=== PATIENT | female | born 2000 | race Caucasian/White ===

== ENCOUNTER 2023-03-18 11:07 | Outpatient (CLI) | payer BC, OTHER | END 2023-03-18 11:08 | disposition home or self-care (01) | LOC: BICMRI 11:07 | PROVIDERS: ATTEND Orthopaedic Surgery | DX: M23.92 Unspecified internal derangement of left knee (principal); S83.512A Sprain of anterior cruciate ligament of left knee, initial encounter; S80.02XA Contusion of left knee, initial encounter ==

== ENCOUNTER 2023-08-31 06:03 | Observation (INO) | payer BC, OTHER ==
[2023-08-30 13:59] VITALS: BMI 23.0
[2023-08-31] MEDS ORDERED: PHENYLEPHRINE-NS 100 MCG/ML 10 ML SYRINGE ONE (06:25)
[2023-08-31] MEDS ORDERED: Metoclopramide HCl 10 MG/2 ML VIAL ONE ×2 (06:25→07:55)
[2023-08-31] MEDS ORDERED: Lidocaine 1% PF 5 ML VIAL ONE (06:25)
[2023-08-31] MEDS ORDERED: diphenhydrAMINE 50 MG/ML VIAL ONE ×2 (06:25→07:55)
[2023-08-31] MEDS ORDERED: Dexamethasone 20 MG/5 ML VIAL ONE (06:25)
[2023-08-31] MEDS ORDERED: PROPOFOL 200 MG/20 ML VIAL ONE (06:25)
[2023-08-31] MEDS ORDERED: Ondansetron PF 4 MG/2 ML Vial ONE ×2 (06:25→07:55)
[2023-08-31] MEDS ORDERED: fentaNYL PF 100 MCG/2 ML SYRINGE ONE ×2 (06:34→07:53)
[2023-08-31] MEDS ORDERED: Midazolam HCl 2 mg/2 ml Vial ONE ×2 (06:34→07:54)
[2023-08-31] MEDS ORDERED: PROPOFOL 20 ML ONE (06:34)
[2023-08-31] MEDS ORDERED: Sodium Chloride 0.9% 100 ML ONE (07:03)
[2023-08-31] MEDS ORDERED: CEFAZOLIN 2 GM VIAL ONE (07:03)
[2023-08-31] MEDS ORDERED: Bupivacaine HCl 0.5%/Epinephrine 1:200,000/PF 30 ml Vial ONE (07:20)
[2023-08-31] MEDS ORDERED: fentaNYL 50 mcg/mL 1 mL Vial SLOW IVP PRN (07:48)
[2023-08-31] MEDS ORDERED: Dexamethasone 4 mg/ml Vial ONE (07:55)
[2023-08-31] MEDS ORDERED: traMADol HCl 50 MG TAB PO PRN ×2 (08:00)
[2023-08-31] MEDS ORDERED: Ondansetron PF 4 MG/2 ML Vial IVP PRN (08:00)
[2023-08-31] MEDS ORDERED: Promethazine HCl 25 MG/ML VIAL IM PRN ×2 (08:00→10:30)
[2023-08-31] MEDS ORDERED: Ropivacaine 0.2% 550 ML 550 ML NERVE BLCK SCH (08:00)
[2023-08-31] MEDS ORDERED: HYDROcodone/Acetaminophen 5/325 mg Tablet PO PRN (08:00)
[2023-08-31] MEDS ORDERED: Zolpidem Tartrate 5 MG TAB PO PRN (08:00)
[2023-08-31] MEDS ORDERED: fentaNYL 50 mcg/mL 1 mL Vial ONE (08:19)
[2023-08-31] MEDS ORDERED: diphenhydrAMINE 50 MG CAP PO PRN (09:10)
[2023-08-31] MEDS ORDERED: Acetaminophen 500 MG TAB PO PRN (09:10)
[2023-08-31] MEDS ORDERED: Milk Of Magnesia 30 ML UDCUP PO PRN (09:10)
[2023-08-31] MEDS ORDERED: Methocarbamol 500 MG TAB PO PRN (09:10)
[2023-08-31] MEDS ORDERED: HYDROcodone/Acetaminophen 7.5/325 mg Tablet PO PRN (09:10)
[2023-08-31] MEDS ORDERED: Bisacodyl 10 MG SUPP PR PRN (09:10)
[2023-08-31] MEDS ORDERED: Meperidine HCl/PF 25 MG/ML VIAL ONE (09:35)
[2023-08-31] MEDS ORDERED: Fentanyl 250 MCG/5 ML VIAL ONE (09:44)
[2023-08-31] MEDS ORDERED: Non-Formulary Medication 1 EACH PO PRN (10:18)
[2023-08-31] MEDS ORDERED: Ondansetron HCl/PF 4 MG/2 ML Vial IVP PRN (10:30)
[2023-08-31] MEDS ORDERED: Meperidine HCl/PF 25 MG/ML VIAL IV PRN (10:30)
[2023-08-31] MEDS: Ketorolac Tromethamine 30 MG/ML VIAL IVP SCH ×3 (12:43→23:53)
[2023-08-31] MEDS: CEFAZOLIN 2 GM in Sodium Chloride 0.9% 100 ML IVPB SCH ×2 (15:55→20:38)
[2023-08-31] MEDS: HYDROcodone/Acetaminophen 5/325 mg Tablet PO PRN (20:36)
[2023-08-31] MEDS: Famotidine 20 MG TAB PO SCH (20:37)
[2023-08-31] MEDS: Dextrose 5 %-0.45 % NaCl 1,000 ML IV SCH (22:59)
[2023-09-01] MEDS: Dextrose 5 %-0.45 % NaCl 1,000 ML IV SCH (05:34)
[2023-09-01] MEDS: Ketorolac Tromethamine 30 MG/ML VIAL IVP SCH ×2 (05:48→12:08)
[2023-09-01] MEDS: Famotidine 20 MG TAB PO SCH (08:24)
[2023-09-01] MEDS: HYDROcodone/Acetaminophen 5/325 mg Tablet PO PRN (08:24)
[2023-09-01 12:58] VITALS: BP 90/55; TEMP 98
== END 2023-09-01 14:55 | disposition home or self-care (01) ==
LOC: SDC 06:03 → SURG B 09:14
PROVIDERS: ADMIT Orthopaedic Surgery; ATTEND Orthopaedic Surgery
PROC: 0YQ Anatomical Regions, Lower Extremities, Repair (ICD-10-PCS; principal; 2023-08-31)
DX: S83.512A Sprain of anterior cruciate ligament of left knee, initial encounter (principal); Z79.899 Other long term (current) drug therapy; X58.XXXA Exposure to other specified factors, initial encounter
CPT/HCPCS: A4306; C1713; C1889; J1100; J1200; J1885; J2175; J2250; J2405; J2704; J2765; J2795; J3010; J3490